=== PATIENT | male | born 1955 | race Caucasian/White ===

== ENCOUNTER 2016-05-29 13:05 | Inpatient (IN) | payer OTHER ==
[2016-05-29] VITALS (15 sets, daily range): BP systolic 95–195; BP diastolic 49–87
[~2016-05-29] VITALS: Ht 167.6 cm; Wt 123.4 kg
[~2016-05-29 13:05] MED LIST: ALLEGRA ALLERG180 MG PO; CALCIUM ACETAT667 MG PO; CATAPRES0.1 MG PO; COREG25 M1 PO; CRESTOR10 MG PO; CYANOCOBALAM1000 MCG PO; FLORASTOR250 MG PO; FOSRENOL1000 MG PO; GABAPENTIN300 MG PO; GENTAMICIN SULF30 G1 TP; HEPARIN IV; HEPARIN SO25000 UNIT IV; HEPARIN SO5000 UNITS PD; HUMALOG100 UNIT/1 SC; KEFLEX500 MG PO; LANTUS 3 M100 UNITS1 SC; LASIX40 MG PO; LASIX80 MG PO; LIPITOR20 MG PO; LO-DOSE ASPIRIN81 M1 PO; METOLAZONE5 MG PO; NEPHRO-VITE,1 TABLET PO; NEURONTIN300 MG PO; NORCO 5/3251 TABLET PO; NORVASC10 MG PO; NOVOLOG 10100 UNITS/ SC; PRILOSEC40 MG PO; RENVELA800 MG PO; REQUIP1 MG PO; REQUIP2 MG PO; ROCALTROL0.25 MCG PO; SENSIPAR60 MG PO; TYLENOL EXTRA500 MG PO; VITAMIN D31000 UNI2 PO; VITAMIN D31000 UNIT PO; VITAMIN E1000 UNIT PO; VITAMIN E400 UNI6 PO
[2016-05-29 13:40] LABS: HEMATOCRIT 24.7 % (38.0-50.0); MCH 29.9 PG (29.0-34.0); MCHC 32.4 G/DL (30.0-36.0); MCV 92.2 FL (86-99); MEAN PLAT.VOLUME 8.9 uM^3 (9.0-12.4); PLATELET COUNT 206 K/uL (156-360); RBC DIS.WIDTH-CV 15.2 % (11.8-14.6); RBC DIS.WIDTH-SD 51.1 % (39-53); RED BLOOD COUNT 2.68 M/uL (4.00-5.50); WHITE BLOOD COUNT 11.4 K/uL (4.1-10.2)
[2016-05-29 13:45] LABS: INTER. NORMALIZED RATIO 1.1
[2016-05-29 14:09] LABS: ANION GAP 16 MEQ/L (2-14); CHLORIDE 97 MEQ/L (99-109); POTASSIUM 4.3 MEQ/L (3.7-5.4); SAMPLE HEMOLYSIS CHECK 0; SAMPLE ICTERIC CHECK 0; SAMPLE LIPEMIA CHECK 0; SODIUM 140 MEQ/L (136-147)
[2016-05-29 14:15] LABS: GFR ESTIMATE (CALCULATED) 6 mL/min/; GLUCOSE 58 mg/dL (70-99); UREA NITROGEN (BUN) 74 mg/dL (9-23)
[2016-05-29 14:22] LABS: POINT-OF-CARE METER ID UU14174212
[2016-05-29 14:25] LABS: POINT-OF-CARE METER ID UU14174212
[2016-05-29 17:27] LABS: BASE EXCESS -4.3 mEq/L (-3 to +3); BICARBONATE 21.6 mEq/L (22-26); PCO2 42 mm Hg (35-45); PO2 361 mm Hg (80-100); pH 7.32 (7.35-7.45)
[2016-05-29 17:29] LABS: COMMENTS - BLOOD GASES C+; DEVICE VENT; FI02 100 %; MECHANICAL RATE 16 resp/min; MODE AC; PEEP 5 CM/H20; SITE RB; TIDAL VOLUME 500 ML; TOTAL RESP RATE 16 resp/min
[2016-05-29 17:37] LABS: CARBOXY HGB 1.5 % (0-5); METHEMOGLOBIN 1.5 % (0-1.5)
[2016-05-29 19:08] LABS: METH RESISTANT S AUREUS PCR NEGATIVE (NEGATIVE)
[2016-05-29 19:10] LABS: PROBE CHECK PASS; SPECIMEN PROCESSING CONTROL PASS
[2016-05-29 19:21] LABS: EOSINOPHIL (%) 0.7 % (0-5); EOSINOPHIL COUNT 0.1 K/uL (0-0.3); HEMATOCRIT 22.7 % (38.0-50.0); IMMATURE GRANULOCYTE (%) 0.5 % (0.0-0.7); IMMATURE GRANULOCYTE COUNT 0.1 K/uL; LYMPHOCYTE COUNT 0.5 K/uL (1.0-2.8); MCHC 31.3 G/DL (30.0-36.0); MCV 92.7 FL (86-99); MEAN PLAT.VOLUME 9.2 uM^3 (9.0-12.4); MONOCYTE (%) 5.8 % (3-12); MONOCYTE COUNT 0.8 K/uL (0-0.8); NEUTROPHIL (%) 88.6 % (45-76); NEUTROPHIL COUNT 11.5 K/uL (1.8-6.4); PLATELET COUNT 149 K/uL (156-360); RBC DIS.WIDTH-CV 15.2 % (11.8-14.6); RED BLOOD COUNT 2.45 M/uL (4.00-5.50)
[2016-05-29 19:27] LABS: ANION GAP 16 MEQ/L (2-14); CHLORIDE 100 MEQ/L (99-109); MAGNESIUM 2.1 mg/dl (1.3-2.7); SAMPLE HEMOLYSIS CHECK 1; SAMPLE ICTERIC CHECK 0; SAMPLE LIPEMIA CHECK 0; SODIUM 138 MEQ/L (136-147)
[2016-05-29 19:33] LABS: GFR ESTIMATE (CALCULATED) 6 mL/min/; UREA NITROGEN (BUN) 72 mg/dL (9-23)
[2016-05-29 19:39] LABS: GLUCOSE 105 mg/dL (70-99)
[2016-05-29 21:28] LABS: BASE EXCESS -0.3 mEq/L (-3 to +3); BICARBONATE 24.8 mEq/L (22-26); CARBOXY HGB 1.7 % (0-5); COMMENTS - BLOOD GASES C+; DEVICE 840; FI02 70 %; MECHANICAL RATE 16 resp/min; METHEMOGLOBIN 1.9 % (0-1.5); MODE A/C; PCO2 42 mm Hg (35-45); PEEP 5 CM/H20; PO2 219 mm Hg (80-100); SITE RIGHT BRACHIAL; TIDAL VOLUME 470 ML; pH 7.38 (7.35-7.45)
[2016-05-30] VITALS (25 sets, daily range): BP systolic 119–187; BP diastolic 66–92
[2016-05-30 01:01] LABS: ADD MIUA? YES; BILIRUBIN NEGATIVE; BLOOD TRACE; COLOR YELLOW ((YELLOW)); GLUCOSE (STRIP) 100; KETONES NEGATIVE; LEUKOCYTES NEGATIVE; NITRITE NEGATIVE; PH, URINE 6.5 (5-8); PROTEIN (STRIP) >=300; SPECIFIC GRAVITY 1.014 (1.000-1.030); UROBILINOGEN 0.2 MG/DL (0.2-1.0)
[2016-05-30 01:24] LABS: EOSINOPHIL (%) 0.4 % (0-5); EOSINOPHIL COUNT 0.1 K/uL (0-0.3); HEMATOCRIT 26.9 % (38.0-50.0); IMMATURE GRANULOCYTE (%) 0.4 % (0.0-0.7); IMMATURE GRANULOCYTE COUNT 0.5 K/uL; LYMPHOCYTE COUNT 0.7 K/uL (1.0-2.8); MCH 29.4 PG (29.0-34.0); MCHC 31.6 G/DL (30.0-36.0); MCV 93.1 FL (86-99); MEAN PLAT.VOLUME 9.2 uM^3 (9.0-12.4); MONOCYTE (%) 5.2 % (3-12); MONOCYTE COUNT 0.7 K/uL (0-0.8); NEUTROPHIL (%) 88.6 % (45-76); NEUTROPHIL COUNT 11.2 K/uL (1.8-6.4); PLATELET COUNT 169 K/uL (156-360); RBC DIS.WIDTH-SD 49.1 % (39-53); RED BLOOD COUNT 2.89 M/uL (4.00-5.50); WHITE BLOOD COUNT 12.6 K/uL (4.1-10.2)
[2016-05-30 01:49] LABS: CHLORIDE 105 mEq/L (99-109); POTASSIUM 4.9 mEq/L (3.7-5.4); SODIUM 139 mEq/L (136-147)
[2016-05-30 01:51] LABS: GLUCOSE 102 mg/dL (70-99)
[2016-05-30 01:52] LABS: TROP-I INTERPRETATION NEGATIVE; TROPONIN-I 0.21 ng/mL (0.0-0.30)
[2016-05-30 01:53] LABS: ANION GAP 13 MEQ/L (2-14)
[2016-05-30 01:56] LABS: GFR ESTIMATE (CALCULATED) 6 mL/min/; UREA NITROGEN (BUN) 78 mg/dL (9-23)
[2016-05-30 01:58] LABS: CREATINE KINASE 115 IU/L (1-294); TOTAL CK 115 IU/L (1-294)
[2016-05-30 01:58] LABS: RED BLOOD CELLS RARE /HPF (0-5)
[2016-05-30 01:59] LABS: EPITHELIAL CELLS RARE; MUCUS NONE SEEN
[2016-05-30 02:00] LABS: BACTERIA 1+; CASTS PRESENT /LPF; CRYSTALS NONE SEEN; HYALINE CASTS RARE /LPF; UCUL ADDED? NO
[2016-05-30 02:04] LABS: CK-MB 3.4 ng/mL (0.0-4.9)
[2016-05-30 06:01] LABS: TROP-I INTERPRETATION NEGATIVE
[2016-05-30 06:26] LABS: CK-MB 4.8 ng/mL (0.0-4.9)
[2016-05-30 06:33] LABS: ANION GAP 15 MEQ/L (2-14); CHLORIDE 102 MEQ/L (99-109); CREATINE KINASE 106 IU/L (1-294); GFR ESTIMATE (CALCULATED) 7 mL/min/; GLUCOSE 93 mg/dL (70-99); MAGNESIUM 1.9 mg/dl (1.3-2.7); POTASSIUM 4.8 MEQ/L (3.7-5.4); SAMPLE HEMOLYSIS CHECK 0; SAMPLE ICTERIC CHECK 0; SAMPLE LIPEMIA CHECK 0; SODIUM 138 MEQ/L (136-147); TOTAL CK 106 IU/L (1-294); UREA NITROGEN (BUN) 73 mg/dL (9-23)
[2016-05-30 06:59] LABS: EOSINOPHIL (%) 0.8 % (0-5); EOSINOPHIL COUNT 0.1 K/uL (0-0.3); HEMATOCRIT 24.7 % (38.0-50.0); IMMATURE GRANULOCYTE (%) 0.3 % (0.0-0.7); LYMPHOCYTE COUNT 0.5 K/uL (1.0-2.8); MCH 30.1 PG (29.0-34.0); MCHC 32.4 G/DL (30.0-36.0); MCV 92.9 FL (86-99); MEAN PLAT.VOLUME 9.4 uM^3 (9.0-12.4); MONOCYTE (%) 8.1 % (3-12); MONOCYTE COUNT 0.7 K/uL (0-0.8); NEUTROPHIL (%) 84.8 % (45-76); NEUTROPHIL COUNT 7.5 K/uL (1.8-6.4); PLATELET COUNT 142 K/uL (156-360); RBC DIS.WIDTH-CV 15.5 % (11.8-14.6); RBC DIS.WIDTH-SD 53.3 % (39-53); RED BLOOD COUNT 2.66 M/uL (4.00-5.50); WHITE BLOOD COUNT 8.9 K/uL (4.1-10.2)
[2016-05-30 11:41] LABS: POINT-OF-CARE METER ID UU13113803
[2016-05-30 12:35] LABS: EOSINOPHIL (%) 0.6 % (0-5); EOSINOPHIL COUNT 0.1 K/uL (0-0.3); HEMATOCRIT 26.7 % (38.0-50.0); IMMATURE GRANULOCYTE (%) 0.4 % (0.0-0.7); LYMPHOCYTE COUNT 0.5 K/uL (1.0-2.8); MCH 29.3 PG (29.0-34.0); MCHC 31.5 G/DL (30.0-36.0); MEAN PLAT.VOLUME 9.4 uM^3 (9.0-12.4); MONOCYTE (%) 7.3 % (3-12); MONOCYTE COUNT 0.8 K/uL (0-0.8); NEUTROPHIL (%) 87.1 % (45-76); NEUTROPHIL COUNT 9.9 K/uL (1.8-6.4); PLATELET COUNT 141 K/uL (156-360); RBC DIS.WIDTH-CV 15.3 % (11.8-14.6); RBC DIS.WIDTH-SD 51.8 % (39-53); RED BLOOD COUNT 2.87 M/uL (4.00-5.50); WHITE BLOOD COUNT 11.3 K/uL (4.1-10.2)
[2016-05-30 13:01] LABS: CK-MB 4.7 ng/mL (0.0-4.9)
[2016-05-30 13:02] LABS: TROP-I INTERPRETATION NEGATIVE
[2016-05-30 13:07] LABS: ANION GAP 17 MEQ/L (2-14); CHLORIDE 102 MEQ/L (99-109); CREATINE KINASE 88 IU/L (1-294); GFR ESTIMATE (CALCULATED) 7 mL/min/; GLUCOSE 84 mg/dL (70-99); POTASSIUM 4.7 MEQ/L (3.7-5.4); SAMPLE HEMOLYSIS CHECK 1; SAMPLE ICTERIC CHECK 0; SAMPLE LIPEMIA CHECK 0; SODIUM 138 MEQ/L (136-147); TOTAL CK 88 IU/L (1-294); UREA NITROGEN (BUN) 74 mg/dL (9-23)
[2016-05-30 14:33] LABS: POINT-OF-CARE METER ID UU13113803
[2016-05-30 17:06] LABS: POINT-OF-CARE METER ID UU13113803
[2016-05-30 18:39] LABS: EOSINOPHIL (%) 0.7 % (0-5); EOSINOPHIL COUNT 0.1 K/uL (0-0.3); HEMATOCRIT 27.6 % (38.0-50.0); IMMATURE GRANULOCYTE (%) 0.5 % (0.0-0.7); IMMATURE GRANULOCYTE COUNT 0.1 K/uL; LYMPHOCYTE COUNT 0.5 K/uL (1.0-2.8); MCH 29.3 PG (29.0-34.0); MCHC 31.9 G/DL (30.0-36.0); MEAN PLAT.VOLUME 9.3 uM^3 (9.0-12.4); MONOCYTE (%) 5.8 % (3-12); MONOCYTE COUNT 0.6 K/uL (0-0.8); NEUTROPHIL (%) 87.6 % (45-76); NEUTROPHIL COUNT 8.3 K/uL (1.8-6.4); PLATELET COUNT 133 K/uL (156-360); RBC DIS.WIDTH-CV 15.2 % (11.8-14.6); RBC DIS.WIDTH-SD 51.1 % (39-53); WHITE BLOOD COUNT 9.5 K/uL (4.1-10.2)
[2016-05-30 19:01] LABS: TROP-I INTERPRETATION NEGATIVE; TROPONIN-I 0.07 ng/mL (0.0-0.30)
[2016-05-30 19:25] LABS: TROP-I INTERPRETATION NEGATIVE; TROPONIN-I 0.07 ng/mL (0.0-0.30)
[2016-05-30 19:39] LABS: ANION GAP 17 MEQ/L (2-14); CHLORIDE 102 MEQ/L (99-109); CREATINE KINASE 69 IU/L (1-294); GFR ESTIMATE (CALCULATED) 7 mL/min/; GLUCOSE 74 mg/dL (70-99); POTASSIUM 4.7 MEQ/L (3.7-5.4); SAMPLE HEMOLYSIS CHECK 0; SAMPLE ICTERIC CHECK 0; SAMPLE LIPEMIA CHECK 0; SODIUM 138 MEQ/L (136-147); TOTAL CK 69 IU/L (1-294); UREA NITROGEN (BUN) 75 mg/dL (9-23)
[2016-05-30 23:15] LABS: POINT-OF-CARE METER ID UU13113731
[2016-05-30 23:49] LABS: EOSINOPHIL COUNT 0.1 K/uL (0-0.3); HEMATOCRIT 28.1 % (38.0-50.0); IMMATURE GRANULOCYTE (%) 0.3 % (0.0-0.7); IMMATURE GRANULOCYTE COUNT 0.3 K/uL; LYMPHOCYTE COUNT 0.4 K/uL (1.0-2.8); MCH 29.9 PG (29.0-34.0); MCHC 32.7 G/DL (30.0-36.0); MCV 91.2 FL (86-99); MEAN PLAT.VOLUME 8.8 uM^3 (9.0-12.4); MONOCYTE (%) 5.3 % (3-12); MONOCYTE COUNT 0.5 K/uL (0-0.8); NEUTROPHIL (%) 88.3 % (45-76); PLATELET COUNT 146 K/uL (156-360); RBC DIS.WIDTH-CV 14.8 % (11.8-14.6); RED BLOOD COUNT 3.08 M/uL (4.00-5.50); WHITE BLOOD COUNT 9.1 K/uL (4.1-10.2)
[2016-05-30 23:58] LABS: CHLORIDE 104 mEq/L (99-109); POTASSIUM 4.5 mEq/L (3.7-5.4); SODIUM 137 mEq/L (136-147)
[2016-05-31] VITALS (22 sets, daily range): BP systolic 130–171; BP diastolic 44–86
[2016-05-31] LABS: GLUCOSE 72 mg/dL (70-99)
[2016-05-31 00:01] LABS: ANION GAP 15 MEQ/L (2-14)
[2016-05-31 00:04] LABS: GFR ESTIMATE (CALCULATED) 6 mL/min/
[2016-05-31 00:05] LABS: UREA NITROGEN (BUN) 77 mg/dL (9-23)
[2016-05-31 00:09] LABS: TROP-I INTERPRETATION NEGATIVE; TROPONIN-I 0.05 ng/mL (0.0-0.30)
[2016-05-31 07:09] LABS: EOSINOPHIL (%) 1.3 % (0-5); EOSINOPHIL COUNT 0.1 K/uL (0-0.3); HEMATOCRIT 27.5 % (38.0-50.0); IMMATURE GRANULOCYTE (%) 0.8 % (0.0-0.7); IMMATURE GRANULOCYTE COUNT 0.1 K/uL; LYMPHOCYTE COUNT 0.4 K/uL (1.0-2.8); MCH 30.3 PG (29.0-34.0); MCHC 32.7 G/DL (30.0-36.0); MCV 92.6 FL (86-99); MONOCYTE (%) 5.3 % (3-12); MONOCYTE COUNT 0.5 K/uL (0-0.8); NEUTROPHIL (%) 88.2 % (45-76); RBC DIS.WIDTH-CV 15.2 % (11.8-14.6); RBC DIS.WIDTH-SD 51.8 % (39-53); RED BLOOD COUNT 2.97 M/uL (4.00-5.50); WHITE BLOOD COUNT 9.1 K/uL (4.1-10.2)
[2016-05-31 07:34] LABS: ANION GAP 17 MEQ/L (2-14); CHLORIDE 102 MEQ/L (99-109); GFR ESTIMATE (CALCULATED) 7 mL/min/; GLUCOSE 67 mg/dL (70-99); POTASSIUM 4.4 MEQ/L (3.7-5.4); SAMPLE HEMOLYSIS CHECK 0; SAMPLE ICTERIC CHECK 0; SAMPLE LIPEMIA CHECK 0; SODIUM 138 MEQ/L (136-147); UREA NITROGEN (BUN) 71 mg/dL (9-23)
[2016-05-31 07:42] LABS: TROP-I INTERPRETATION NEGATIVE; TROPONIN-I 0.04 ng/mL (0.0-0.30)
[2016-05-31 08:08] LABS: PLAT.SUFFICIENCY DECREASED; USER ID STC
[2016-05-31 08:11] LABS: POINT-OF-CARE METER ID UU13113731
[2016-05-31 10:58] LABS: POINT-OF-CARE METER ID UU13113731
[2016-05-31 12:31] LABS: EOSINOPHIL (%) 1.2 % (0-5); EOSINOPHIL COUNT 0.1 K/uL (0-0.3); HEMATOCRIT 28.6 % (38.0-50.0); IMMATURE GRANULOCYTE (%) 0.5 % (0.0-0.7); IMMATURE GRANULOCYTE COUNT 0.1 K/uL; LYMPHOCYTE COUNT 0.5 K/uL (1.0-2.8); MCH 29.9 PG (29.0-34.0); MCHC 32.5 G/DL (30.0-36.0); MONOCYTE (%) 3.7 % (3-12); MONOCYTE COUNT 0.4 K/uL (0-0.8); NEUTROPHIL (%) 90.1 % (45-76); NEUTROPHIL COUNT 10.1 K/uL (1.8-6.4); NRBC (%) 0.5 /100 WBC (0-0); RBC DIS.WIDTH-CV 15.4 % (11.8-14.6); RBC DIS.WIDTH-SD 51.1 % (39-53); RED BLOOD COUNT 3.11 M/uL (4.00-5.50); WHITE BLOOD COUNT 11.2 K/uL (4.1-10.2)
[2016-05-31 13:00] LABS: ANION GAP 17 MEQ/L (2-14); CHLORIDE 102 MEQ/L (99-109); GFR ESTIMATE (CALCULATED) 7 mL/min/; GLUCOSE 65 mg/dL (70-99); POTASSIUM 4.8 MEQ/L (3.7-5.4); SAMPLE HEMOLYSIS CHECK 0; SAMPLE ICTERIC CHECK 0; SAMPLE LIPEMIA CHECK 0; SODIUM 137 MEQ/L (136-147); TROP-I INTERPRETATION NEGATIVE; TROPONIN-I 0.03 ng/mL (0.0-0.30); UREA NITROGEN (BUN) 71 mg/dL (9-23)
[2016-05-31 13:38] LABS: MEAN PLAT.VOLUME 9.5 uM^3 (9.0-12.4); PLAT.SUFFICIENCY ADEQUATE; PLATELET COUNT 163 K/uL (156-360); USER ID STC
[2016-05-31] MEDS ORDERED: HUMALOG100 UNIT/2 SC (17:00)
[2016-05-31] MEDS ORDERED: PRINIVIL20 MG PO (17:01)
[2016-05-31 17:57] LABS: EOSINOPHIL (%) 0.8 % (0-5); EOSINOPHIL COUNT 0.1 K/uL (0-0.3); HEMATOCRIT 26.6 % (38.0-50.0); IMMATURE GRANULOCYTE (%) 0.6 % (0.0-0.7); IMMATURE GRANULOCYTE COUNT 0.1 K/uL; LYMPHOCYTE COUNT 0.5 K/uL (1.0-2.8); MCH 30.2 PG (29.0-34.0); MCHC 32.7 G/DL (30.0-36.0); MCV 92.4 FL (86-99); MEAN PLAT.VOLUME 9.7 uM^3 (9.0-12.4); MONOCYTE (%) 5.6 % (3-12); MONOCYTE COUNT 0.6 K/uL (0-0.8); NEUTROPHIL (%) 88.6 % (45-76); NEUTROPHIL COUNT 9.4 K/uL (1.8-6.4); NRBC (%) 0.9 /100 WBC (0-0); PLATELET COUNT 161 K/uL (156-360); RBC DIS.WIDTH-CV 15.4 % (11.8-14.6); RBC DIS.WIDTH-SD 51.9 % (39-53); RED BLOOD COUNT 2.88 M/uL (4.00-5.50); WHITE BLOOD COUNT 10.7 K/uL (4.1-10.2)
[2016-05-31 18:21] LABS: ANION GAP 22 MEQ/L (2-14); CHLORIDE 101 MEQ/L (99-109); MAGNESIUM 1.9 mg/dl (1.3-2.7); POTASSIUM 4.8 MEQ/L (3.7-5.4); SAMPLE HEMOLYSIS CHECK 0; SAMPLE ICTERIC CHECK 0; SAMPLE LIPEMIA CHECK 0; SODIUM 141 MEQ/L (136-147)
[2016-05-31 18:26] LABS: GFR ESTIMATE (CALCULATED) 7 mL/min/; GLUCOSE 76 mg/dL (70-99); UREA NITROGEN (BUN) 75 mg/dL (9-23)
[2016-05-31 18:29] LABS: TROP-I INTERPRETATION NEGATIVE; TROPONIN-I 0.04 ng/mL (0.0-0.30)
[2016-06-01] VITALS (18 sets, daily range): BP systolic 101–161; BP diastolic 39–72
[2016-06-01 05:46] LABS: EOSINOPHIL (%) 1.7 % (0-5); EOSINOPHIL COUNT 0.1 K/uL (0-0.3); HEMATOCRIT 24.6 % (38.0-50.0); IMMATURE GRANULOCYTE (%) 0.7 % (0.0-0.7); IMMATURE GRANULOCYTE COUNT 0.1 K/uL; MCH 29.5 PG (29.0-34.0); MCHC 31.7 G/DL (30.0-36.0); MCV 93.2 FL (86-99); MEAN PLAT.VOLUME 9.7 uM^3 (9.0-12.4); MONOCYTE (%) 6.8 % (3-12); MONOCYTE COUNT 0.6 K/uL (0-0.8); NEUTROPHIL (%) 78.4 % (45-76); NEUTROPHIL COUNT 6.6 K/uL (1.8-6.4); NRBC (%) 0.9 /100 WBC (0-0); PLATELET COUNT 150 K/uL (156-360); RED BLOOD COUNT 2.64 M/uL (4.00-5.50); WHITE BLOOD COUNT 8.4 K/uL (4.1-10.2)
[2016-06-01 06:22] LABS: ANION GAP 18 MEQ/L (2-14); CHLORIDE 100 MEQ/L (99-109); GFR ESTIMATE (CALCULATED) 6 mL/min/; GLUCOSE 96 mg/dL (70-99); MAGNESIUM 1.9 mg/dl (1.3-2.7); POTASSIUM 4.8 MEQ/L (3.7-5.4); SAMPLE HEMOLYSIS CHECK 0; SAMPLE ICTERIC CHECK 0; SAMPLE LIPEMIA CHECK 0; SODIUM 136 MEQ/L (136-147); UREA NITROGEN (BUN) 80 mg/dL (9-23)
[2016-06-01 09:33] LABS: IRON 48 MCG/DL (35-150)
[2016-06-01 12:30] LABS: POINT-OF-CARE METER ID UU13113803
[2016-06-01 17:28] LABS: POINT-OF-CARE METER ID UU13113803
[2016-06-01 21:14] LABS: POINT-OF-CARE METER ID UU13113748
[2016-06-02] VITALS (16 sets, daily range): BP systolic 116–154; BP diastolic 41–76
[2016-06-02 06:19] LABS: ANION GAP 17 MEQ/L (2-14); CHLORIDE 97 MEQ/L (99-109); GFR ESTIMATE (CALCULATED) 6 mL/min/; POTASSIUM 4.7 MEQ/L (3.7-5.4); SAMPLE HEMOLYSIS CHECK 0; SAMPLE ICTERIC CHECK 0; SAMPLE LIPEMIA CHECK 0; SODIUM 133 MEQ/L (136-147); UREA NITROGEN (BUN) 87 mg/dL (9-23)
[2016-06-02 06:23] LABS: GLUCOSE 195 mg/dL (70-99)
[2016-06-02 06:30] LABS: EOSINOPHIL (%) 1.9 % (0-5); EOSINOPHIL COUNT 0.2 K/uL (0-0.3); HEMATOCRIT 23.5 % (38.0-50.0); IMMATURE GRANULOCYTE (%) 1.6 % (0.0-0.7); IMMATURE GRANULOCYTE COUNT 0.2 K/uL; LYMPHOCYTE COUNT 0.8 K/uL (1.0-2.8); MCHC 31.9 G/DL (30.0-36.0); MEAN PLAT.VOLUME 9.6 uM^3 (9.0-12.4); MONOCYTE (%) 6.5 % (3-12); MONOCYTE COUNT 0.6 K/uL (0-0.8); NEUTROPHIL (%) 81.4 % (45-76); NEUTROPHIL COUNT 7.7 K/uL (1.8-6.4); PLATELET COUNT 174 K/uL (156-360); RBC DIS.WIDTH-CV 16.1 % (11.8-14.6); RBC DIS.WIDTH-SD 54.4 % (39-53); WHITE BLOOD COUNT 9.4 K/uL (4.1-10.2)
[2016-06-03] VITALS (11 sets, daily range): BP systolic 133–167; BP diastolic 44–67
[2016-06-03 05:33] LABS: EOSINOPHIL (%) 1.8 % (0-5); EOSINOPHIL COUNT 0.2 K/uL (0-0.3); HEMATOCRIT 22.3 % (38.0-50.0); IMMATURE GRANULOCYTE (%) 1.6 % (0.0-0.7); IMMATURE GRANULOCYTE COUNT 0.2 K/uL; LYMPHOCYTE COUNT 0.8 K/uL (1.0-2.8); MCHC 32.3 G/DL (30.0-36.0); MCV 92.9 FL (86-99); MEAN PLAT.VOLUME 9.2 uM^3 (9.0-12.4); MONOCYTE (%) 8.8 % (3-12); MONOCYTE COUNT 0.8 K/uL (0-0.8); NEUTROPHIL (%) 79.7 % (45-76); NEUTROPHIL COUNT 7.6 K/uL (1.8-6.4); NRBC (%) 0.6 /100 WBC (0-0); PLATELET COUNT 159 K/uL (156-360); RBC DIS.WIDTH-CV 15.6 % (11.8-14.6); RBC DIS.WIDTH-SD 51.8 % (39-53); WHITE BLOOD COUNT 9.5 K/uL (4.1-10.2)
[2016-06-03 05:53] LABS: ANION GAP 15 MEQ/L (2-14); CHLORIDE 95 MEQ/L (99-109); GFR ESTIMATE (CALCULATED) 6 mL/min/; GLUCOSE 187 mg/dL (70-99); MAGNESIUM 1.9 mg/dl (1.3-2.7); POTASSIUM 4.3 MEQ/L (3.7-5.4); SAMPLE HEMOLYSIS CHECK 0; SAMPLE ICTERIC CHECK 0; SAMPLE LIPEMIA CHECK 0; SODIUM 131 MEQ/L (136-147); UREA NITROGEN (BUN) 90 mg/dL (9-23)
[2016-06-03 09:57] LABS: ALKALINE PHOSPHATASE 246 IU/L (3-129); DIRECT BILIRUBIN 0.3 mg/dL (0.0-0.3); TOTAL BILIRUBIN 0.7 MG/DL (0.0-1.0)
[2016-06-03 21:38] LABS: POINT-OF-CARE METER ID UU13113748
[2016-06-04] VITALS (15 sets, daily range): BP systolic 104–199; BP diastolic 58–87
[2016-06-04 05:58] LABS: HEMATOCRIT 22.6 % (38.0-50.0); MCH 29.4 PG (29.0-34.0); MCHC 31.9 G/DL (30.0-36.0); MCV 92.2 FL (86-99); NRBC (%) 0.5 /100 WBC (0-0); PLATELET COUNT 169 K/uL (156-360); RBC DIS.WIDTH-CV 15.8 % (11.8-14.6); RBC DIS.WIDTH-SD 51.3 % (39-53); RED BLOOD COUNT 2.45 M/uL (4.00-5.50); WHITE BLOOD COUNT 10.8 K/uL (4.1-10.2)
[2016-06-04 06:23] LABS: ANION GAP 14 MEQ/L (2-14); CHLORIDE 96 MEQ/L (99-109); GFR ESTIMATE (CALCULATED) 5 mL/min/; GLUCOSE 171 mg/dL (70-99); MAGNESIUM 1.9 mg/dl (1.3-2.7); POTASSIUM 4.4 MEQ/L (3.7-5.4); SAMPLE HEMOLYSIS CHECK 0; SAMPLE ICTERIC CHECK 0; SAMPLE LIPEMIA CHECK 0; SODIUM 131 MEQ/L (136-147); UREA NITROGEN (BUN) 89 mg/dL (9-23)
[2016-06-04 06:42] LABS: EOSINOPHIL COUNT 0.2 K/uL (0-0.3); IMMATURE GRANULOCYTE (%) 2.6 % (0.0-0.7); IMMATURE GRANULOCYTE COUNT 0.3 K/uL; LYMPHOCYTE COUNT 0.9 K/uL (1.0-2.8); MONOCYTE (%) 8.4 % (3-12); MONOCYTE COUNT 0.9 K/uL (0-0.8); NEUTROPHIL (%) 78.8 % (45-76); NEUTROPHIL COUNT 8.5 K/uL (1.8-6.4)
[2016-06-04 09:10] LABS: HEMATOLOGY COMMENT 1 SMEAR COMPATIBLE; USER ID STC
[2016-06-04 11:52] LABS: POINT-OF-CARE METER ID UU13113748
[2016-06-05] VITALS (13 sets, daily range): BP systolic 149–199; BP diastolic 54–90
[2016-06-05 07:14] LABS: HEMATOCRIT 24.9 % (38.0-50.0); MCH 29.7 PG (29.0-34.0); MCHC 31.7 G/DL (30.0-36.0); MCV 93.6 FL (86-99); MEAN PLAT.VOLUME 9.2 uM^3 (9.0-12.4); NRBC (%) 0.6 /100 WBC (0-0); PLATELET COUNT 179 K/uL (156-360); RBC DIS.WIDTH-CV 16.2 % (11.8-14.6); RBC DIS.WIDTH-SD 52.7 % (39-53); RED BLOOD COUNT 2.66 M/uL (4.00-5.50); WHITE BLOOD COUNT 10.3 K/uL (4.1-10.2)
[2016-06-05 07:32] LABS: EOSINOPHIL (%) 2.3 % (0-5); EOSINOPHIL COUNT 0.2 K/uL (0-0.3); IMMATURE GRANULOCYTE (%) 4.5 % (0.0-0.7); IMMATURE GRANULOCYTE COUNT 0.5 K/uL; LYMPHOCYTE COUNT 0.5 K/uL (1.0-2.8); MONOCYTE (%) 10.1 % (3-12); NEUTROPHIL (%) 77.8 % (45-76)
[2016-06-05 07:41] LABS: ANION GAP 14 MEQ/L (2-14); CHLORIDE 97 MEQ/L (99-109); GFR ESTIMATE (CALCULATED) 6 mL/min/; MAGNESIUM 1.8 mg/dl (1.3-2.7); SAMPLE HEMOLYSIS CHECK 0; SAMPLE ICTERIC CHECK 0; SAMPLE LIPEMIA CHECK 0; SODIUM 135 MEQ/L (136-147); UREA NITROGEN (BUN) 77 mg/dL (9-23)
[2016-06-05 07:43] LABS: GLUCOSE 278 mg/dL (70-99)
[2016-06-05 07:45] LABS: HEMATOLOGY COMMENT 1 SMEAR COMPATIBLE; PLAT.SUFFICIENCY ADEQUATE
[2016-06-05 09:36] LABS: POINT-OF-CARE METER ID UU13113803
[2016-06-05 12:55] LABS: POINT-OF-CARE METER ID UU13113803
[2016-06-05 17:28] LABS: POINT-OF-CARE METER ID UU13113803
[2016-06-05 20:51] LABS: POINT-OF-CARE METER ID UU13113725
[2016-06-06 03:26] VITALS: BP 143/66
[2016-06-06 05:52] LABS: POINT-OF-CARE METER ID UU13113725
[2016-06-06 06:17] LABS: HEMATOCRIT 23.7 % (38.0-50.0); MCH 29.9 PG (29.0-34.0); MCHC 31.6 G/DL (30.0-36.0); MCV 94.4 FL (86-99); MEAN PLAT.VOLUME 9.1 uM^3 (9.0-12.4); NRBC (%) 0.2 /100 WBC (0-0); PLATELET COUNT 166 K/uL (156-360); RBC DIS.WIDTH-CV 16.8 % (11.8-14.6); RBC DIS.WIDTH-SD 54.3 % (39-53); RED BLOOD COUNT 2.51 M/uL (4.00-5.50); WHITE BLOOD COUNT 9.5 K/uL (4.1-10.2)
[2016-06-06 06:22] LABS: EOSINOPHIL (%) 1.7 % (0-5); EOSINOPHIL COUNT 0.2 K/uL (0-0.3); IMMATURE GRANULOCYTE (%) 1.7 % (0.0-0.7); IMMATURE GRANULOCYTE COUNT 0.2 K/uL; LYMPHOCYTE COUNT 0.8 K/uL (1.0-2.8); MONOCYTE (%) 10.2 % (3-12); NEUTROPHIL (%) 78.1 % (45-76); NEUTROPHIL COUNT 7.5 K/uL (1.8-6.4)
[2016-06-06 06:49] LABS: ANION GAP 14 MEQ/L (2-14); CHLORIDE 99 MEQ/L (99-109); GFR ESTIMATE (CALCULATED) 6 mL/min/; MAGNESIUM 1.8 mg/dl (1.3-2.7); POTASSIUM 4.1 MEQ/L (3.7-5.4); SAMPLE HEMOLYSIS CHECK 0; SAMPLE ICTERIC CHECK 0; SAMPLE LIPEMIA CHECK 0; SODIUM 138 MEQ/L (136-147); UREA NITROGEN (BUN) 76 mg/dL (9-23)
[2016-06-06 06:55] LABS: GLUCOSE 135 mg/dL (70-99)
[2016-06-06 10:58] LABS: AHBS INDEX 8.55; HBSG INDEX 0.21; HEPATITIS B SURFACE ANTIBODY EQUIVOCAL; HPCA INDEX 0.13
[2016-06-06 12:14] LABS: ANTI-HEPATITIS B CORE (TOTAL) Nonreactive; HBCT INDEX 0.16
[2016-06-06 12:46] VITALS: BP 128/91
[2016-06-06 13:50] VITALS: BP 133/81
[2016-06-06 14:44] VITALS: BP 171/70
[2016-06-06 16:48] LABS: POINT-OF-CARE METER ID UU13113725
[2016-06-06 20:22] VITALS: BP 159/110
[2016-06-06 21:04] LABS: POINT-OF-CARE METER ID UU13113717
[2016-06-06 23:17] VITALS: BP 160/70
[2016-06-07] VITALS (8 sets, daily range): BP systolic 126–198; BP diastolic 52–86
[2016-06-07 05:39] LABS: HEMATOCRIT 24.2 % (38.0-50.0); MCH 29.5 PG (29.0-34.0); MCV 95.3 FL (86-99); MEAN PLAT.VOLUME 8.8 uM^3 (9.0-12.4); PLATELET COUNT 174 K/uL (156-360); RBC DIS.WIDTH-CV 16.8 % (11.8-14.6); RBC DIS.WIDTH-SD 56.7 % (39-53); RED BLOOD COUNT 2.54 M/uL (4.00-5.50); WHITE BLOOD COUNT 8.4 K/uL (4.1-10.2)
[2016-06-07 05:51] LABS: POINT-OF-CARE METER ID UU13113725
[2016-06-07 06:21] LABS: ANION GAP 10 MEQ/L (2-14); CHLORIDE 98 MEQ/L (99-109); GFR ESTIMATE (CALCULATED) 8 mL/min/; MAGNESIUM 1.8 mg/dl (1.3-2.7); POTASSIUM 3.8 MEQ/L (3.7-5.4); SAMPLE HEMOLYSIS CHECK 0; SAMPLE ICTERIC CHECK 0; SAMPLE LIPEMIA CHECK 0; SODIUM 136 MEQ/L (136-147); UREA NITROGEN (BUN) 52 mg/dL (9-23)
[2016-06-07 06:22] LABS: GLUCOSE 71 mg/dL (70-99)
[2016-06-07 06:36] LABS: EOSINOPHIL (%) 2.3 % (0-5); EOSINOPHIL COUNT 0.2 K/uL (0-0.3); IMMATURE GRANULOCYTE (%) 1.7 % (0.0-0.7); IMMATURE GRANULOCYTE COUNT 0.1 K/uL; LYMPHOCYTE COUNT 1.1 K/uL (1.0-2.8); MONOCYTE (%) 10.8 % (3-12); MONOCYTE COUNT 0.9 K/uL (0-0.8); NEUTROPHIL (%) 72.4 % (45-76); NEUTROPHIL COUNT 6.1 K/uL (1.8-6.4)
[2016-06-07 11:44] LABS: POINT-OF-CARE METER ID UU13113725
[2016-06-07 16:27] LABS: POINT-OF-CARE METER ID UU13113717
[2016-06-08 02:43] VITALS: BP 178/79
[2016-06-08 06:53] LABS: ANION GAP 10 MEQ/L (2-14); CHLORIDE 97 MEQ/L (99-109); GFR ESTIMATE (CALCULATED) 7 mL/min/; GLUCOSE 79 mg/dL (70-99); MAGNESIUM 1.8 mg/dl (1.3-2.7); SAMPLE HEMOLYSIS CHECK 0; SAMPLE ICTERIC CHECK 0; SAMPLE LIPEMIA CHECK 0; SODIUM 134 MEQ/L (136-147); UREA NITROGEN (BUN) 59 mg/dL (9-23)
[2016-06-08 08:54] VITALS: BP 180/82
[2016-06-08 10:00] VITALS: BP 196/75
[2016-06-08] MEDS ORDERED: LANTUS 3 M100 UNITS1 SC ×2 (12:28)
== END 2016-06-08 14:17 | disposition home or self-care (01) | DRG 981 ==
LOC: SDC 13:05 → 4WEST 17:23 → SDC 17:27 → 4WEST 06-02 04:39 → 5EAST 06-05 20:05
PROVIDERS: Hospitalist; Internal Medicine; Internal Medicine Critical Care Medicine; Internal Medicine Nephrology; Surgery
PROC: 5A12012 Performance of Cardiac Output, Single, Manual (ICD-10-PCS; principal; 2016-05-29)
PROC: 0WW Anatomical Regions, General, Revision (ICD-10-PCS; principal; 2016-05-29)
PROC: 0BH17EZ Insertion of Endotracheal Airway into Trachea, Via Natural or Artificial Opening (ICD-10-PCS; principal; 2016-05-29)
PROC: 5A1945Z Respiratory Ventilation, 24-96 Consecutive Hours (ICD-10-PCS; principal; 2016-05-29)
PROC: 3E1M39Z Irrigation of Peritoneal Cavity using Dialysate, Percutaneous Approach (ICD-10-PCS; 2016-06-01)
PROC: 02HV33Z Insertion of Infusion Device into Superior Vena Cava, Percutaneous Approach (ICD-10-PCS; 2016-06-05)
PROC: 5A1D00Z (ICD-10-PCS; 2016-06-06)
DX: I97.121 Postprocedural cardiac arrest following other surgery (principal); R09.2 Respiratory arrest; T41.205A Adverse effect of unspecified general anesthetics, initial encounter; T85.691A Other mechanical complication of intraperitoneal dialysis catheter, initial encounter; G93.40 Encephalopathy, unspecified; I12.0 Hypertensive chronic kidney disease with stage 5 chronic kidney disease or end stage renal disease; E11.22 Type 2 diabetes mellitus with diabetic chronic kidney disease; N18.6 End stage renal disease; D63.1 Anemia in chronic kidney disease; N25.81 Secondary hyperparathyroidism of renal origin; I27.2 Other secondary pulmonary hypertension; G25.81 Restless legs syndrome; K21.9 Gastro-esophageal reflux disease without esophagitis; E66.9 Obesity, unspecified; Z68.41 Body mass index [BMI] 40.0-44.9, adult; Z79.4 Long term (current) use of insulin; Z85.820 Personal history of malignant melanoma of skin
CPT/HCPCS: 36600; 70450; 71010; 71020; 74000; 80048; 80048 91; 80069; 80076; 81003; 82040; 82330; 82550; 82550 91; 82553; 82803; 82948; 83540; 83605; 83735; 84100; 84466; 84484; 85014; 85018; 85025; 85025 91; 85027; 85610; 86704; 86706; 86803; 86850; 86900; 86901; 86920; 87070; 87205; 87340; 87641; 93005; 94003; 94799; 95819; 97530 GO; 99202; C1788; J0330; J0360; J0461; J0690; J0881; J1644; J1815; J2250; J2405; J2704; J2710; J3010; J7030; J7040; J7050; P9016; S0020; S0028

== ENCOUNTER 2016-06-30 15:39 | Inpatient (IN) | payer OTHER ==
[~2016-06-30] VITALS: Ht 167.6 cm; Wt 109.1 kg
[~2016-06-30 15:39] MED LIST changes: +HUMALOG100 UNIT/2 SC; +PRINIVIL20 MG PO
[2016-06-30 17:12] LABS: MCH 30.1 PG (29.0-34.0); MCHC 31.8 G/DL (30.0-36.0); MCV 94.6 FL (86-99); MEAN PLAT.VOLUME 9.1 uM^3 (9.0-12.4); PLATELET COUNT 228 K/uL (156-360); RBC DIS.WIDTH-CV 14.2 % (11.8-14.6); RBC DIS.WIDTH-SD 46.5 % (39-53); RED BLOOD COUNT 2.96 M/uL (4.00-5.50); WHITE BLOOD COUNT 15.9 K/uL (4.1-10.2)
[2016-06-30 17:19] LABS: INFLUENZA A VIRAL ANTIGEN NEGATIVE; INFLUENZA B VIRAL ANTIGEN NEGATIVE
[2016-06-30 17:25] LABS: CHLORIDE 98 mEq/L (99-109); POTASSIUM 5.1 mEq/L (3.7-5.4); SODIUM 138 mEq/L (136-147)
[2016-06-30 17:27] LABS: GLUCOSE 124 mg/dL (70-99)
[2016-06-30 17:28] LABS: ANION GAP 15 MEQ/L (2-14)
[2016-06-30 17:29] LABS: TOTAL BILIRUBIN 1.2 mg/dL (0.0-1.0)
[2016-06-30 17:31] LABS: ALKALINE PHOSPHATASE 222 IU/L (3-129); GFR ESTIMATE (CALCULATED) 9 mL/min/
[2016-06-30 17:32] LABS: UREA NITROGEN (BUN) 58 mg/dL (9-23)
[2016-06-30 20:00] LABS: TROP-I INTERPRETATION NEGATIVE; TROPONIN-I 0.04 ng/mL (0.0-0.30)
[2016-06-30 20:54] LABS: BILIRUBIN NEGATIVE; BLOOD NEGATIVE; COLOR YELLOW ((YELLOW)); KETONES NEGATIVE; LEUKOCYTES NEGATIVE; NITRITE NEGATIVE; SPECIFIC GRAVITY 1.015 (1.000-1.030); UROBILINOGEN 0.2 MG/DL (0.2-1.0)
[2016-06-30 20:55] LABS: ADD MIUA? YES
[2016-06-30 20:56] LABS: GLUCOSE (STRIP) 250; PROTEIN (STRIP) >=300
[2016-06-30 20:58] LABS: BACTERIA RARE /HPF; EPITHELIAL CELLS RARE /HPF; MUCUS NONE SEEN /LPF; UCUL ADDED? NO; WHITE BLOOD CELLS 20-30 /HPF (0-5)
[2016-06-30 20:59] LABS: CASTS NONE SEEN /LPF; CRYSTALS NONE SEEN
[2016-06-30 23:30] LABS: HEMATOCRIT 24.5 % (38.0-50.0); MCH 29.7 PG (29.0-34.0); MCHC 31.4 G/DL (30.0-36.0); MCV 94.6 FL (86-99); MEAN PLAT.VOLUME 9.3 uM^3 (9.0-12.4); PLATELET COUNT 187 K/uL (156-360); RBC DIS.WIDTH-CV 14.2 % (11.8-14.6); RBC DIS.WIDTH-SD 46.5 % (39-53); RED BLOOD COUNT 2.59 M/uL (4.00-5.50); WHITE BLOOD COUNT 16.4 K/uL (4.1-10.2)
[2016-07-01 00:26] LABS: CHLORIDE 98 mEq/L (99-109); POTASSIUM 5.2 mEq/L (3.7-5.4); SODIUM 136 mEq/L (136-147)
[2016-07-01 00:28] LABS: GLUCOSE 144 mg/dL (70-99)
[2016-07-01 00:30] LABS: ANION GAP 11 MEQ/L (2-14)
[2016-07-01 00:32] LABS: GFR ESTIMATE (CALCULATED) 8 mL/min/
[2016-07-01 00:33] LABS: UREA NITROGEN (BUN) 64 mg/dL (9-23)
[2016-07-01 00:40] VITALS: BP 142/65
[2016-07-01 01:02] LABS: POINT-OF-CARE METER ID UU14174216
[2016-07-01 04:55] VITALS: BP 120/55
[2016-07-01 07:00] LABS: EOSINOPHIL (%) 0.4 % (0-5); EOSINOPHIL COUNT 0.1 K/uL (0-0.3); HEMATOCRIT 22.6 % (38.0-50.0); IMMATURE GRANULOCYTE (%) 0.2 % (0.0-0.7); LYMPHOCYTE COUNT 0.7 K/uL (1.0-2.8); MCHC 32.3 G/DL (30.0-36.0); MEAN PLAT.VOLUME 9.5 uM^3 (9.0-12.4); MONOCYTE (%) 5.3 % (3-12); MONOCYTE COUNT 0.7 K/uL (0-0.8); NEUTROPHIL (%) 88.1 % (45-76); NEUTROPHIL COUNT 10.9 K/uL (1.8-6.4); PLATELET COUNT 159 K/uL (156-360); RBC DIS.WIDTH-CV 14.9 % (11.8-14.6); RED BLOOD COUNT 2.43 M/uL (4.00-5.50); WHITE BLOOD COUNT 12.3 K/uL (4.1-10.2)
[2016-07-01 07:25] LABS: ANION GAP 12 MEQ/L (2-14); CHLORIDE 95 MEQ/L (99-109); GFR ESTIMATE (CALCULATED) 8 mL/min/; GLUCOSE 126 mg/dL (70-99); SAMPLE HEMOLYSIS CHECK 0; SAMPLE ICTERIC CHECK 0; SAMPLE LIPEMIA CHECK 0; SODIUM 134 MEQ/L (136-147); UREA NITROGEN (BUN) 63 mg/dL (9-23)
[2016-07-01 07:44] LABS: INTERNAL CONTROL VALID? YES
[2016-07-01 07:58] LABS: POINT-OF-CARE USER ID ENVKC36
[2016-07-01 08:20] VITALS: BP 132/65
[2016-07-01 09:25] LABS: IRON 23 MCG/DL (35-150)
[2016-07-01 14:00] VITALS: BP 157/69
[2016-07-01 14:35] LABS: POINT-OF-CARE USER ID ENVKC36
[2016-07-01 16:00] VITALS: BP 124/58
[2016-07-01 16:20] LABS: POINT-OF-CARE USER ID ENVKC36
[2016-07-01 20:40] VITALS: BP 139/76
[2016-07-01 21:36] LABS: TROP-I INTERPRETATION NEGATIVE; TROPONIN-I 0.03 ng/mL (0.0-0.30)
[2016-07-02] VITALS (7 sets, daily range): BP systolic 133–175; BP diastolic 61–82
[2016-07-02 02:53] LABS: TROP-I INTERPRETATION NEGATIVE; TROPONIN-I 0.03 ng/mL (0.0-0.30)
[2016-07-02 08:07] LABS: DIRECT BILIRUBIN 1.6 mg/dL (0.0-0.3); TOTAL BILIRUBIN 2.3 MG/DL (0.0-1.0)
[2016-07-02 08:13] LABS: ALKALINE PHOSPHATASE 263 IU/L (3-129); LIPASE 8 U/L (1.0-51.0)
[2016-07-02 09:44] LABS: NRBC (%) 0.7 /100 WBC (0-0)
[2016-07-02 09:48] LABS: EOSINOPHIL (%) 2.3 % (0-5); EOSINOPHIL COUNT 0.2 K/uL (0-0.3); HEMATOCRIT 25.1 % (38.0-50.0); IMMATURE GRANULOCYTE (%) 0.4 % (0.0-0.7); LYMPHOCYTE COUNT 0.3 K/uL (1.0-2.8); MCH 30.2 PG (29.0-34.0); MCHC 31.9 G/DL (30.0-36.0); MCV 94.7 FL (86-99); MEAN PLAT.VOLUME 9.3 uM^3 (9.0-12.4); MONOCYTE (%) 7.2 % (3-12); MONOCYTE COUNT 0.5 K/uL (0-0.8); NEUTROPHIL (%) 85.2 % (45-76); NEUTROPHIL COUNT 5.9 K/uL (1.8-6.4); PLATELET COUNT 149 K/uL (156-360); RBC DIS.WIDTH-CV 15.3 % (11.8-14.6); RBC DIS.WIDTH-SD 52.3 % (39-53); RED BLOOD COUNT 2.65 M/uL (4.00-5.50)
[2016-07-02 09:55] LABS: INTER. NORMALIZED RATIO 1.2; PTT 30.6 (25-32)
[2016-07-02 10:04] LABS: ANION GAP 13 MEQ/L (2-14); CHLORIDE 98 MEQ/L (99-109); POTASSIUM 4.7 MEQ/L (3.7-5.4); SAMPLE HEMOLYSIS CHECK 0; SAMPLE ICTERIC CHECK 0; SAMPLE LIPEMIA CHECK 0; SODIUM 140 MEQ/L (136-147)
[2016-07-02 10:14] LABS: GFR ESTIMATE (CALCULATED) 12 mL/min/; GLUCOSE 134 mg/dL (70-99); TROP-I INTERPRETATION NEGATIVE; TROPONIN-I 0.02 ng/mL (0.0-0.30); UREA NITROGEN (BUN) 35 mg/dL (9-23)
[2016-07-02 11:23] LABS: POINT-OF-CARE METER ID UU13113698
[2016-07-02 16:37] LABS: POINT-OF-CARE METER ID UU13113698
[2016-07-02 21:32] LABS: POINT-OF-CARE METER ID UU13113781
[2016-07-03 04:32] VITALS: BP 149/67
[2016-07-03 06:37] LABS: HEMATOCRIT 25.1 % (38.0-50.0); MCH 29.8 PG (29.0-34.0); MCHC 31.5 G/DL (30.0-36.0); MCV 94.7 FL (86-99); MEAN PLAT.VOLUME 9.8 uM^3 (9.0-12.4); PLATELET COUNT 177 K/uL (156-360); RBC DIS.WIDTH-SD 51.4 % (39-53); RED BLOOD COUNT 2.65 M/uL (4.00-5.50); WHITE BLOOD COUNT 7.7 K/uL (4.1-10.2)
[2016-07-03 07:24] LABS: ALKALINE PHOSPHATASE 320 IU/L (3-129); ANION GAP 11 MEQ/L (2-14); CHLORIDE 99 MEQ/L (99-109); GFR ESTIMATE (CALCULATED) 9 mL/min/; GLUCOSE 68 mg/dL (70-99); POTASSIUM 4.3 MEQ/L (3.7-5.4); SAMPLE HEMOLYSIS CHECK 0; SAMPLE ICTERIC CHECK 0; SAMPLE LIPEMIA CHECK 0; SODIUM 136 MEQ/L (136-147); TOTAL BILIRUBIN 1.7 MG/DL (0.0-1.0); UREA NITROGEN (BUN) 45 mg/dL (9-23)
[2016-07-03 07:56] VITALS: BP 131/62
[2016-07-03 15:00] VITALS: BP 144/66
[2016-07-03 15:33] LABS: POINT-OF-CARE METER ID UU13113781
[2016-07-03 18:32] LABS: POINT-OF-CARE METER ID UU13113675
[2016-07-03 20:00] VITALS: BP 158/70
[2016-07-03 22:33] VITALS: BP 151/72
[2016-07-03 23:36] VITALS: BP 150/72
[2016-07-04 03:50] VITALS: BP 131/60
[2016-07-04 08:27] LABS: HEMATOCRIT 22.8 % (38.0-50.0); MCH 30.6 PG (29.0-34.0); MCHC 32.5 G/DL (30.0-36.0); MCV 94.2 FL (86-99); MEAN PLAT.VOLUME 9.7 uM^3 (9.0-12.4); PLATELET COUNT 178 K/uL (156-360); RBC DIS.WIDTH-CV 15.2 % (11.8-14.6); RBC DIS.WIDTH-SD 52.8 % (39-53); RED BLOOD COUNT 2.42 M/uL (4.00-5.50); WHITE BLOOD COUNT 8.7 K/uL (4.1-10.2)
[2016-07-04 08:40] LABS: ANION GAP 9 MEQ/L (2-14); CHLORIDE 99 MEQ/L (99-109); DIRECT BILIRUBIN 2.1 mg/dL (0.0-0.3); POTASSIUM 4.7 MEQ/L (3.7-5.4); SAMPLE HEMOLYSIS CHECK 0; SAMPLE ICTERIC CHECK 0; SAMPLE LIPEMIA CHECK 0; SODIUM 133 MEQ/L (136-147)
[2016-07-04 08:41] LABS: TOTAL BILIRUBIN 2.9 MG/DL (0.0-1.0)
[2016-07-04 08:47] LABS: ALKALINE PHOSPHATASE 391 IU/L (3-129); GFR ESTIMATE (CALCULATED) 11 mL/min/; GLUCOSE 207 mg/dL (70-99); UREA NITROGEN (BUN) 32 mg/dL (9-23)
[2016-07-04 11:39] LABS: POINT-OF-CARE METER ID UU13113698; POINT-OF-CARE USER ID ENVKC36
[2016-07-04 12:01] VITALS: BP 140/70
[2016-07-04 16:42] LABS: POINT-OF-CARE USER ID ENVKC36
[2016-07-04 17:29] VITALS: BP 110/55
[2016-07-04 19:30] VITALS: BP 148/67
[2016-07-04 20:54] LABS: POINT-OF-CARE METER ID UU14174216
[2016-07-04 23:55] VITALS: BP 127/63
[2016-07-05 04:40] VITALS: BP 141/73
[2016-07-05 06:39] LABS: HEMATOCRIT 24.5 % (38.0-50.0); MCHC 31.4 G/DL (30.0-36.0); MCV 95.3 FL (86-99); MEAN PLAT.VOLUME 9.6 uM^3 (9.0-12.4); PLATELET COUNT 177 K/uL (156-360); RBC DIS.WIDTH-CV 15.4 % (11.8-14.6); RBC DIS.WIDTH-SD 52.3 % (39-53); RED BLOOD COUNT 2.57 M/uL (4.00-5.50); WHITE BLOOD COUNT 8.3 K/uL (4.1-10.2)
[2016-07-05 06:59] LABS: INTER. NORMALIZED RATIO 1.1; PROTHROMBIN TIME 11.7 (9.2-11.2)
[2016-07-05 07:13] LABS: ALKALINE PHOSPHATASE 336 IU/L (3-129); ANION GAP 8 MEQ/L (2-14); CHLORIDE 98 MEQ/L (99-109); GFR ESTIMATE (CALCULATED) 11 mL/min/; POTASSIUM 4.4 MEQ/L (3.7-5.4); SAMPLE HEMOLYSIS CHECK 0; SAMPLE ICTERIC CHECK 0; SAMPLE LIPEMIA CHECK 0; SODIUM 135 MEQ/L (136-147); UREA NITROGEN (BUN) 30 mg/dL (9-23)
[2016-07-05 07:16] LABS: GLUCOSE 50 mg/dL (70-99); TOTAL BILIRUBIN 1.6 MG/DL (0.0-1.0)
[2016-07-05 07:58] LABS: POINT-OF-CARE METER ID UU13113698
[2016-07-05 08:06] VITALS: BP 157/72
[2016-07-05 09:32] LABS: POINT-OF-CARE METER ID UU13113698
[2016-07-05 11:33] LABS: POINT-OF-CARE METER ID UU14174216
[2016-07-05] MEDS ORDERED: COUMADIN5 MG PO (15:21)
== END 2016-07-05 16:51 | disposition home or self-care (01) | DRG 417 ==
LOC: EME 15:39 → EDOF 23:37 → 4EAST 23:37
PROVIDERS: Emergency Medicine; Family Medicine; Hospitalist; Internal Medicine; Nurse Practitioner Family; Student in an Organized Health Care Education/Training Program; Surgery; Thoracic Surgery (Cardiothoracic Vascular Surgery)
DX: K80.00 Calculus of gallbladder with acute cholecystitis without obstruction (principal); T82.7XXA Infection and inflammatory reaction due to other cardiac and vascular devices, implants and grafts, initial encounter; N18.6 End stage renal disease; R65.10 Systemic inflammatory response syndrome (SIRS) of non-infectious origin without acute organ dysfunction; Z68.41 Body mass index [BMI] 40.0-44.9, adult; I12.0 Hypertensive chronic kidney disease with stage 5 chronic kidney disease or end stage renal disease; E11.22 Type 2 diabetes mellitus with diabetic chronic kidney disease; E66.01 Morbid (severe) obesity due to excess calories; I48.0 Paroxysmal atrial fibrillation; Z86.74 Personal history of sudden cardiac arrest; D50.9 Iron deficiency anemia, unspecified; I27.2 Other secondary pulmonary hypertension; E83.39 Other disorders of phosphorus metabolism; D63.1 Anemia in chronic kidney disease; G25.81 Restless legs syndrome; K21.9 Gastro-esophageal reflux disease without esophagitis; Z79.4 Long term (current) use of insulin; Z99.2 Dependence on renal dialysis
CPT/HCPCS: 71020; 71275; 74181; 74300; 76705; 80048; 80048 91; 80053; 80069; 80076; 81003; 82040; 82272; 82945; 82948; 83540; 83690; 84157; 84466; 84484; 85025; 85027; 85610; 85730; 87040; 87070; 87205; 87449; 87502; 88304; 89051; 93005; 94799; 99281; 99285; C1725; C1769; C1894; J0330; J0692; J0881; J1644; J1756; J1815; J2405; J3010; J7050; J7060; S0020

== ENCOUNTER 2016-07-24 10:16 | Day surgery (SDC) | payer OTHER ==
[~2016-07-24] VITALS: Ht 170.2 cm; Wt 108.4 kg
[~2016-07-24 10:16] MED LIST changes: +AMLODIPINE BESYL5 MG PO; +COUMADIN5 MG PO
[2016-07-24 11:22] LABS: HEMATOCRIT 26.4 % (38.0-50.0); MCH 29.6 PG (29.0-34.0); MCHC 31.4 G/DL (30.0-36.0); MCV 94.3 FL (86-99); RBC DIS.WIDTH-CV 15.7 % (11.8-14.6); RBC DIS.WIDTH-SD 53.5 % (39-53)
[2016-07-24 11:25] LABS: PLATELET COUNT 270 K/uL (156-360)
[2016-07-24 11:28] VITALS: BP 146/69
[2016-07-24 11:29] LABS: ANION GAP 10 MEQ/L (2-14); CHLORIDE 97 MEQ/L (99-109); POTASSIUM 4.8 MEQ/L (3.7-5.4); SAMPLE HEMOLYSIS CHECK 0; SAMPLE ICTERIC CHECK 0; SAMPLE LIPEMIA CHECK 0; SODIUM 137 MEQ/L (136-147)
[2016-07-24 11:35] LABS: GFR ESTIMATE (CALCULATED) 10 mL/min/; GLUCOSE 71 mg/dL (70-99); UREA NITROGEN (BUN) 46 mg/dL (9-23)
[2016-07-24 11:35] LABS: POINT-OF-CARE METER ID UU14174212
[2016-07-24 15:15] LABS: POINT-OF-CARE METER ID UU14174212
[2016-07-24] MEDS ORDERED: NORCO 5/3251 TABLET PO (19:45)
[2016-07-24 20:23] LABS: POINT-OF-CARE METER ID UU13113675
[2016-07-24 20:40] VITALS: BP 140/63; BP 146/69
== END 2016-07-24 21:10 | disposition home or self-care (01) ==
LOC: SDC 10:16
PROVIDERS: Surgery
DX: I12.0 Hypertensive chronic kidney disease with stage 5 chronic kidney disease or end stage renal disease (principal); E11.22 Type 2 diabetes mellitus with diabetic chronic kidney disease; N18.6 End stage renal disease; K21.9 Gastro-esophageal reflux disease without esophagitis; Z85.820 Personal history of malignant melanoma of skin; G25.81 Restless legs syndrome; Z79.4 Long term (current) use of insulin; Z79.01 Long term (current) use of anticoagulants; Z79.82 Long term (current) use of aspirin; Z82.49 Family history of ischemic heart disease and other diseases of the circulatory system; Z83.3 Family history of diabetes mellitus; Z80.42 Family history of malignant neoplasm of prostate; Z80.52 Family history of malignant neoplasm of bladder
CPT/HCPCS: 80048; 82948; 85027; C2628; J0690; J1644; J2250; J3010

== ENCOUNTER 2016-09-02 12:17 | Day surgery (SDC) | payer OTHER ==
[~2016-09-02] VITALS: Ht 167.6 cm; Wt 107.0 kg
[~2016-09-02 12:17] MED LIST changes: +COREG12.5 M1 PO; +ELIQUIS5 MG PO; +NORVASC2.5 MG PO; +OMEPRAZOLE40 M1 PO; +VITAMIN D32000 UNI1 PO
[2016-09-02 12:50] VITALS: BP 139/68
[2016-09-02 13:04] LABS: HEMATOCRIT 32.2 % (38.0-50.0); MCH 29.4 PG (29.0-34.0); MCHC 31.1 G/DL (30.0-36.0); MCV 94.7 FL (86-99); MEAN PLAT.VOLUME 9.2 uM^3 (9.0-12.4); PLATELET COUNT 224 K/uL (156-360); RBC DIS.WIDTH-CV 15.6 % (11.8-14.6); RBC DIS.WIDTH-SD 53.7 % (39-53); WHITE BLOOD COUNT 9.2 K/uL (4.1-10.2)
[2016-09-02 13:18] LABS: CHLORIDE 98 mEq/L (99-109); POTASSIUM 5.7 mEq/L (3.7-5.4); SODIUM 137 mEq/L (136-147)
[2016-09-02 13:20] LABS: GLUCOSE 70 mg/dL (70-99)
[2016-09-02 13:21] LABS: ANION GAP 15 MEQ/L (2-14)
[2016-09-02 13:24] LABS: GFR ESTIMATE (CALCULATED) 7 mL/min/
[2016-09-02 13:25] LABS: UREA NITROGEN (BUN) 77 mg/dL (9-23)
[2016-09-02 14:32] LABS: METH RESISTANT S AUREUS PCR NEGATIVE (NEGATIVE); PROBE CHECK PASS; SPECIMEN PROCESSING CONTROL PASS
[2016-09-02 15:40] LABS: POINT-OF-CARE METER ID UU14174212
[2016-09-02 16:46] LABS: POINT-OF-CARE METER ID UU14174212
[2016-09-02 19:48] VITALS: BP 170/77
== END 2016-09-02 20:10 | disposition home or self-care (01) ==
LOC: SDC 12:17
PROVIDERS: Surgery
DX: T82.858A Stenosis of other vascular prosthetic devices, implants and grafts, initial encounter (principal); Y83.2 Surgical operation with anastomosis, bypass or graft as the cause of abnormal reaction of the patient, or of later complication, without mention of misadventure at the time of the procedure; I12.0 Hypertensive chronic kidney disease with stage 5 chronic kidney disease or end stage renal disease; E11.22 Type 2 diabetes mellitus with diabetic chronic kidney disease; N18.6 End stage renal disease; Z99.2 Dependence on renal dialysis; Z85.820 Personal history of malignant melanoma of skin; G25.81 Restless legs syndrome; K21.9 Gastro-esophageal reflux disease without esophagitis; Z80.42 Family history of malignant neoplasm of prostate; Z83.3 Family history of diabetes mellitus; Z82.49 Family history of ischemic heart disease and other diseases of the circulatory system
CPT/HCPCS: 80048; 82948; 85027; 87641; C1725; C1769; C1894; J0690; J1644; J2250; J3010

== ENCOUNTER → 2016-09-18 | Outpatient (CLI) | payer OTHER | END | disposition home or self-care (01) | LOC: AMB 07:05 | PROC: 02PYX3Z Removal of Infusion Device from Great Vessel, External Approach (ICD-10-PCS; principal; 2016-09-18) | DX: Z45.2 Encounter for adjustment and management of vascular access device (principal); N18.6 End stage renal disease; Z99.2 Dependence on renal dialysis ==

== ENCOUNTER 2016-10-04 18:50 | Emergency (ER) | payer OTHER ==
[~2016-10-04] VITALS: Ht 170.2 cm; Wt 108.2 kg
[2016-10-04] MEDS ORDERED: KEFLEX500 MG PO (19:16)
[2016-10-04 19:39] VITALS: BP 163/74
== END 2016-10-04 19:40 | disposition home or self-care (01) ==
LOC: EME 18:50
DX: S80.212A Abrasion, left knee, initial encounter (principal); S80.211A Abrasion, right knee, initial encounter; W19.XXXA Unspecified fall, initial encounter; Y92.480 Sidewalk as the place of occurrence of the external cause; Z99.2 Dependence on renal dialysis; E11.22 Type 2 diabetes mellitus with diabetic chronic kidney disease; N18.6 End stage renal disease; Z79.4 Long term (current) use of insulin; Z79.01 Long term (current) use of anticoagulants
CPT/HCPCS: 99281; 99283

== ENCOUNTER 2016-12-11 14:27 | Emergency (ER) | payer OTHER ==
[~2016-12-11] VITALS: Ht 167.6 cm; Wt 108.0 kg
[2016-12-11 15:27] LABS: HEMATOCRIT 32.6 % (38.0-50.0); MCH 30.6 PG (29.0-34.0); MCHC 32.8 G/DL (30.0-36.0); MCV 93.1 FL (86-99); MEAN PLAT.VOLUME 9.7 uM^3 (9.0-12.4); PLATELET COUNT 197 K/uL (156-360); RBC DIS.WIDTH-CV 14.6 % (11.8-14.6); RBC DIS.WIDTH-SD 49.6 % (39-53); WHITE BLOOD COUNT 9.1 K/uL (4.1-10.2)
[2016-12-11 15:34] LABS: ADD MIUA? YES; BILIRUBIN NEGATIVE; BLOOD NEGATIVE; COLOR YELLOW ((YELLOW)); GLUCOSE (STRIP) >=500; KETONES NEGATIVE; LEUKOCYTES NEGATIVE; NITRITE NEGATIVE; PROTEIN (STRIP) >=500; SPECIFIC GRAVITY 1.018 (1.000-1.030); UROBILINOGEN 0.2 MG/DL (0.2-1.0)
[2016-12-11 15:44] LABS: CHLORIDE 94 mEq/L (99-109); POTASSIUM 4.7 mEq/L (3.7-5.4); SODIUM 136 mEq/L (136-147)
[2016-12-11 15:46] LABS: GLUCOSE 290 mg/dL (70-99)
[2016-12-11 15:47] LABS: ANION GAP 16 MEQ/L (2-14)
[2016-12-11 15:50] LABS: GFR ESTIMATE (CALCULATED) 10 mL/min/
[2016-12-11 15:51] LABS: UREA NITROGEN (BUN) 38 mg/dL (9-23)
[2016-12-11 16:13] LABS: BACTERIA NONE SEEN /HPF; EPITHELIAL CELLS RARE /HPF; MUCUS TRACE /LPF; RED BLOOD CELLS 0-5 /HPF (0-5); UCUL ADDED? NO
[2016-12-11] MEDS ORDERED: ZOFRAN ODT4 MG PO (17:12)
[2016-12-11] MEDS ORDERED: ROXICODONE5 MG PO (17:12)
[2016-12-11 17:30] VITALS: BP 177/71
== END 2016-12-11 17:31 | disposition home or self-care (01) ==
LOC: EME 14:27
DX: R10.9 Unspecified abdominal pain (principal); E11.65 Type 2 diabetes mellitus with hyperglycemia; E11.22 Type 2 diabetes mellitus with diabetic chronic kidney disease; I12.9 Hypertensive chronic kidney disease with stage 1 through stage 4 chronic kidney disease, or unspecified chronic kidney disease; N18.9 Chronic kidney disease, unspecified; Z99.2 Dependence on renal dialysis; Z87.442 Personal history of urinary calculi; Z79.4 Long term (current) use of insulin; Z86.74 Personal history of sudden cardiac arrest; Z90.49 Acquired absence of other specified parts of digestive tract; K21.9 Gastro-esophageal reflux disease without esophagitis
CPT/HCPCS: 71020; 74000; 80048; 81003; 85027; 99281; 99284

== ENCOUNTER 2017-01-01 21:51 | Observation (INO) | payer OTHER ==
[~2017-01-01] VITALS: Ht 167.6 cm; Wt 94.2 kg
[~2017-01-01 21:51] MED LIST changes: +ROXICODONE5 MG PO; +ZOFRAN ODT4 MG PO
[2017-01-01 23:18] LABS: INTER. NORMALIZED RATIO 1.1; PROTHROMBIN TIME 12.4 SEC (10.2-12.9)
[2017-01-01 23:20] LABS: CHLORIDE 94 mEq/L (99-109); POTASSIUM 4.2 mEq/L (3.7-5.4); SODIUM 137 mEq/L (136-147)
[2017-01-01 23:21] LABS: MAGNESIUM 1.8 mg/dL (1.3-2.7); PTT 30.4 SEC (25-37)
[2017-01-01 23:22] LABS: GLUCOSE 259 mg/dL (70-99)
[2017-01-01 23:24] LABS: ANION GAP 10 MEQ/L (2-14); TOTAL BILIRUBIN 0.4 mg/dL (0.0-1.0)
[2017-01-01 23:26] LABS: ALKALINE PHOSPHATASE 136 IU/L (3-129); GFR ESTIMATE (CALCULATED) 16 mL/min/
[2017-01-01 23:27] LABS: UREA NITROGEN (BUN) 17 mg/dL (9-23)
[2017-01-01 23:29] LABS: LIPASE 16 U/L (1.0-51.0)
[2017-01-01 23:30] LABS: HEMATOCRIT 33.3 % (38.0-50.0); MCH 30.3 PG (29.0-34.0); MCHC 31.8 G/DL (30.0-36.0); MCV 95.1 FL (86-99); RBC DIS.WIDTH-CV 14.2 % (11.8-14.6); RBC DIS.WIDTH-SD 49.4 % (39-53); WHITE BLOOD COUNT 7.2 K/uL (4.1-10.2)
[2017-01-01 23:38] LABS: TROP-I INTERPRETATION NEGATIVE; TROPONIN-I 0.04 ng/mL (0.0-0.30)
[2017-01-02 00:04] LABS: MEAN PLAT.VOLUME 9.6 uM^3 (9.0-12.4); PLAT.SUFFICIENCY DECREASED; PLATELET COUNT 136 K/uL (156-360)
[2017-01-02] MEDS ORDERED: LORAZEPAM0.5 MG PO (01:23)
[2017-01-02] MEDS ORDERED: CARVEDILOL25 MG PO (01:43)
[2017-01-02] MEDS ORDERED: BASAGLAR K100 UNIT/1 SC (01:47)
[2017-01-02] MEDS ORDERED: DILTIAZEM ER60 MG PO (01:48)
[2017-01-02] MEDS ORDERED: LISINOPRIL20 MG PO (01:48)
[2017-01-02 03:14] VITALS: BP 92/68
[2017-01-02 04:56] VITALS: BP 106/70
[2017-01-02 07:58] LABS: POINT-OF-CARE METER ID UU13113698
[2017-01-02 08:00] VITALS: BP 186/81
[2017-01-02 10:00] VITALS: BP 140/66
== END 2017-01-02 11:02 | disposition home or self-care (01) ==
LOC: EME 21:51 → EDOF 01-02 00:53 → 4EAST 01-02 00:53 → EDOF 01-02 00:53 → 4EAST 01-02 00:53 → ENRESERV 01-02 00:57 → 4EAST 01-02 03:07
PROVIDERS: Emergency Medicine; Hospitalist
DX: I48.0 Paroxysmal atrial fibrillation (principal); E11.65 Type 2 diabetes mellitus with hyperglycemia; I12.0 Hypertensive chronic kidney disease with stage 5 chronic kidney disease or end stage renal disease; E11.22 Type 2 diabetes mellitus with diabetic chronic kidney disease; N18.6 End stage renal disease; Z99.2 Dependence on renal dialysis; Z86.74 Personal history of sudden cardiac arrest; K21.9 Gastro-esophageal reflux disease without esophagitis; Z85.820 Personal history of malignant melanoma of skin; G25.81 Restless legs syndrome; Z87.442 Personal history of urinary calculi; Z79.4 Long term (current) use of insulin; Z79.01 Long term (current) use of anticoagulants; Z88.8 Allergy status to other drugs, medicaments and biological substances
CPT/HCPCS: 71020; 80053; 81003; 82948; 83690; 83735; 84100; 84484; 85027; 85610; 85730; 93005; 99281; 99285; G0378; J1815; J7030

== ENCOUNTER 2017-02-03 07:09 | Day surgery (SDC) | payer OTHER ==
[~2017-02-03] VITALS: Ht 170.2 cm; Wt 106.1 kg
[~2017-02-03 07:09] MED LIST changes: +ATIVAN0.5 MG PO; +BASAGLAR K100 UNIT/1 SC; +CARDIZEM60 MG PO; +CARVEDILOL25 MG PO; +DILTIAZEM ER60 MG PO; +LISINOPRIL20 MG PO; +LORAZEPAM0.5 MG PO
[2017-02-03 07:45] LABS: HEMATOCRIT 35.3 % (38.0-50.0); MCH 31.7 PG (29.0-34.0); MCHC 33.1 G/DL (30.0-36.0); MCV 95.7 FL (86-99); MEAN PLAT.VOLUME 9.2 uM^3 (9.0-12.4); PLATELET COUNT 166 K/uL (156-360); RBC DIS.WIDTH-CV 13.5 % (11.8-14.6); RBC DIS.WIDTH-SD 46.9 % (39-53); RED BLOOD COUNT 3.69 M/uL (4.00-5.50)
[2017-02-03 08:13] LABS: ANION GAP 9 MEQ/L (2-14); CHLORIDE 95 MEQ/L (99-109); GFR ESTIMATE (CALCULATED) 9 mL/min/; GLUCOSE 131 mg/dL (70-99); POTASSIUM 3.7 MEQ/L (3.7-5.4); SAMPLE HEMOLYSIS CHECK 0; SAMPLE ICTERIC CHECK 0; SAMPLE LIPEMIA CHECK 0; SODIUM 138 MEQ/L (136-147); UREA NITROGEN (BUN) 33 mg/dL (9-23)
[2017-02-03 08:54] VITALS: BP 185/87
[2017-02-03 09:20] LABS: METH RESISTANT S AUREUS PCR NEGATIVE (NEGATIVE)
[2017-02-03 09:33] LABS: PROBE CHECK PASS; SPECIMEN PROCESSING CONTROL PASS
[2017-02-03 12:19] LABS: POINT-OF-CARE METER ID UU13113675; POINT-OF-CARE USER ID 515036437
[2017-02-03] MEDS ORDERED: NORCO 5/3251 TABLET PO (12:41)
[2017-02-03 13:04] VITALS: BP 162/69
[2017-02-03 13:35] VITALS: BP 172/70
== END 2017-02-03 13:55 | disposition home or self-care (01) ==
LOC: SDC 07:09
PROVIDERS: Surgery
DX: T82.858A Stenosis of other vascular prosthetic devices, implants and grafts, initial encounter (principal); I12.0 Hypertensive chronic kidney disease with stage 5 chronic kidney disease or end stage renal disease; E11.22 Type 2 diabetes mellitus with diabetic chronic kidney disease; N18.6 End stage renal disease; Z99.2 Dependence on renal dialysis; Z79.4 Long term (current) use of insulin; Z85.820 Personal history of malignant melanoma of skin; K21.0 Gastro-esophageal reflux disease with esophagitis; I48.91 Unspecified atrial fibrillation; Z79.01 Long term (current) use of anticoagulants
CPT/HCPCS: 80048; 82948; 85027; 87641; C1725; C1768; C1769; C1887; C1894; J0330; J0360; J0690; J1100; J1644; J2250; J2405; J2710; J3010